=== PATIENT | male | born 1985 | race Caucasian/White ===

== ENCOUNTER 2021-08-20 09:21 | Observation (INO) ==
--- NOTE | 2021-08-20 09:26 | DR.ABDMALE ---
HPI Time seen Time Seen by Provider: 08/20/21 09:26 HPI comment HPI Comment: PATIENT IS 36YR OLD MALE IN ER WITH LLQ ABDOMINAL PAIN TIMES 6 DAYS, PAIN IS WORSE TODAY. PAIN IS SHARP, 10/10 AND RADIATES TO LEFT BACK. NO FEVER, DYSURIA, DIARRHEA OR VOMITING. NAUSEATED. HISTORY KIDNEY STONE AND WAS PLACE ON FLOMAX AND CIPRO WITHOUT IMPROVEMENT. Complaint Chief Complaint Doctors Comments: LLQ ABDOMINAL PAIN TIMES 6 DAYS. COVID-19 Coronavirus risk:travel/contact w/high risk person: No Has patient experienced Coronavirus symptoms: No Reviewed Nurses Notes Review: Yes Mode of arrival Mode of Arrival: Ambulatory Timing Came on: Suddenly Duration Duration: Constant Duration: Days Location Location: LLQ Severity Severity: Severe Quality Quality: Sharp Context Onset: Suddenly History of: Urolithiasis Modifying factors Worsening Factors: Movement Improving Factors: Lying Still Associated signs and symptoms Associated Signs and Symptoms: Nausea Other history Other History: HISTORY KIDNEY STONE. ROS Review of Systems Constitutional: No Symptoms Reported and See HPI; negative Fever, Weakness and Fatigue Eyes: No Symptoms Reported and See HPI ENTM: No Symptoms Reported and See HPI; negative Nose Discharge and Nose Congestion Respiratoy: No Symptoms Reported and See HPI; negative Moist Cough, Short of Breath and Wheezing Cardiovascular: No Symptoms Reported and See HPI; negative Chest Pain Gastrointestinal/Abdominal: No Symptoms Reported, See HPI, Abdominal Pain and Nausea; negative Constipation, Diarrhea and Vomiting Genitourinary: No Symptoms Reported and See HPI; negative Dysuria, Frequency and Hematuria Neurological: No Symptoms Reported and See HPI; negative Headache, Weakness and Dizziness Musculoskeletal: No Symptoms Reported and See HPI; negative Back Pain and Muscle Pain Integumentary: No Symptoms Reported and See HPI; negative Rash and Juandice Hematologic/Lymphatic: No Symptoms Reported and See HPI; negative Easy Bruising Endocrine: No Symptoms Reported and See HPI; negative Increased Thirst and Increased Urine Psychiatric: No Symptoms Reported and See HPI All Other Systems: Reviewed and Negative PE Vital Signs Vital Signs: Temp Pulse Resp BP Pulse Ox 08/20/21 10:08 18 08/20/21 09:23 98.6 F 97 H 18 174/111 97 General Limitations: No Limitations General Appearance: Alert and In No Apparent Distress Head Head Exam: Normal Inspection Eyes Eye exam: Normal Appearance; negative Scleral Icterus and Conjunctival Injection ENT ENT Exam: Normal Exam, Normal Oropharynx, Normal External Ear Exam and TM's Normal Bilaterally Neck Neck Exam: Normal Inspection and Trachea Midline; negative Tenderness Chest Chest Inspection: Normal Inspection and Symmetric Chest Wall Rise; negative Tenderness Respiratory Respiratory Exam: Normal Lung Sounds Bilat; negative Accessory Muscle Use, Chest Wall Tenderness and Respiratory Distress Respiratory Exam: Bilateral: Clear to Auscultation Cardiovascular Cardiovascular Exam: Regular Rate, Normal Rhythm and Normal Heart Sounds; negative Systolic Murmur and Diastolic Murmur Abdominal Exam Abdominal Exam: Normal Bowel Sounds, Soft, Distention and Tenderness Abdominal Tenderness: LLQ, Suprapubic and Moderate Rectal Rectal Exam: Deferred Back Back Exam: Normal Inspection; negative (R) CVA Tenderness and (L) CVA Tenderness Extremeties Extremities Exam: Normal Inspection and Normal Capillary Refill Exam: Male: Deferred Neurologic Neurological Exam: Alert and Oriented X3 Psychiatric Psychiatric Exam: Normal Affect and Normal Mood Skin Skin Exam: Warm, Dry, Intact and Normal Color MDM Differential Diagnosis Differential Diagnosis: Appendicitis, Bowel Obstruction, Cholcystitis, Cholelethiasis, Constipation, Diverticular disease, Gastritus/PUD, Inflammatory BD, Pancreatitis, Urinary tract infection and Urolithiasis COURSE Treatment Treatment: SEE ORDERS DONE WHILE PATIENT WAS IN ER. ADMITTED TO HOSPITAL FOR FURTHER MANAGEMENT FOR DIVERTIVULITIS WITH ABSCESS. Consultation Consultation Comments: DISCUSSED PATIENT WITH DR. COLLINS AND HE WILL ADMIT PATIENT. Education/Counseling Education/Counseling: Patient Educated On: Diagnosis ROR Labs Reviewed Laboratory Results Reviewed?: Yes Result Diagrams: 08/21/21 04:42 08/20/21 10:00 Laboratory: WBC 11.6 X10^3/uL (3.6-10.0) H 08/20/21 10:00 RBC 5.91 X10^6/uL (4.7-6.0) 08/20/21 10:00 Hgb 17.0 g/dL (13.5-18.0) 08/20/21 10:00 Hct 50.3 % (42.0-54.0) 08/20/21 10:00 MCV 85.1 fL (80.0-100.0) 08/20/21 10:00 MCH 28.8 pg (27.0-34.0) 08/20/21 10:00 MCHC 33.9 g/dL (33.0-35.0) 08/20/21 10:00 RDW 13.7 % (11.6-16.5) 08/20/21 10:00 Plt Count 275 X10^3/uL (150.0-450.0) 08/20/21 10:00 MPV 7.9 fL (7.4-11.0) 08/20/21 10:00 Neut % (Auto) 81.8 % (42.0-75.0) H 08/20/21 10:00 Lymph % (Auto) 10.9 % (21.0-51.0) L 08/20/21 10:00 [place] % (Auto) 6.3 % (0.0-13.0) 08/20/21 10:00 Eos % (Auto) 0.5 % (0.9-2.9) L 08/20/21 10:00 Baso % (Auto) 0.5 % (0.2-1.0) 08/20/21 10:00 Neut # (Auto) 9.5 x10^3/uL (2.2-4.8) H 08/20/21 10:00 Lymph # (Auto) 1.3 X10^3/uL (1.3-2.9) 08/20/21 10:00 [place] # (Auto) 0.7 x10^3/uL (0.3-0.8) 08/20/21 10:00 Eos # (Auto) 0.1 x10^3/uL (0.0-0.2) 08/20/21 10:00 Baso # (Auto) 0.1 X10^3/uL (0.0-0.1) 08/20/21 10:00 Absolute Nucleated RBC 0.0 /100WBC 08/20/21 10:00 Sodium 138 mmol/L (136-145) 08/20/21 10:00 Corrected Sodium TNP 08/20/21 10:00 Potassium 4.6 mmol/L (3.5-5.1) 08/20/21 10:00 Chloride 102 mmol/L (98-107) 08/20/21 10:00 Carbon Dioxide 26.6 mmol/L (21-32) 08/20/21 10:00 BUN 10 mg/dL (7-18) 08/20/21 10:00 Creatinine 1.25 mg/dL (0.70-1.30) 08/20/21 10:00 Est GFR (MDRD) Af Amer > 60 (>60) 08/20/21 10:00 Est GFR (MDRD) Non-Af > 60 (>60) 08/20/21 10:00 Glucose 91 mg/dL (65-99) 08/20/21 10:00 Calcium 9.3 mg/dL (8.5-10.1) 08/20/21 10:00 Corrected Calcium TNP 08/20/21 10:00 Total Bilirubin 0.60 mg/dL (0.2-1.0) 08/20/21 10:00 AST 44 Units/L (15-37) H 08/20/21 10:00 ALT 52 Units/L (12-78) 08/20/21 10:00 Alkaline Phosphatase 59 Units/L (46-116) 08/20/21 10:00 Total Protein 7.7 g/dL (6.4-8.2) 08/20/21 10:00 Albumin 3.8 g/dL (3.4-5.0) 08/20/21 10:00 Globulin 3.9 g/dL (2.5-4.5) 08/20/21 10:00 Albumin/Globulin Ratio 1.0 Ratio (1.1-2.1) L 08/20/21 10:00 Specimen Type Clean catch urine 08/20/21 10:26 Urine Color Yellow (YELLOW) 08/20/21 10:26 Urine Appearance Clear (CLEAR) 08/20/21 10:26 Urine pH 8.0 (5.0 - 8.0) 08/20/21 10:26 Ur Specific [place] 1.015 (1.000-1.030) 08/20/21 10:26 Urine Protein Negative (NEGATIVE) 08/20/21 10:26 Urine Glucose (UA) Negative (NEGATIVE) 08/20/21 10:26 Urine Ketones Negative (NEGATIVE) 08/20/21 10:26 Urine Blood Negative (NEGATIVE) 08/20/21 10:26 Urine Nitrite Negative (NEGATIVE) 08/20/21 10:26 Urine Bilirubin Negative (NEGATIVE) 08/20/21 10:26 Urine Urobilinogen Normal (NORMAL) 08/20/21 10:26 Ur Leukocyte Esterase Negative (NEGATIVE) 08/20/21 10:26 XRAY XRAY Interpreted by: Radiologist (REPORT NOTED.) Opioid Opioid Risk Tool Age (Faheem box if 16-45): Yes Total: 1 Total Score Risk Category: Low Risk Copyright: Aramis MEJIA predicting aberrant behaviors Diagnosis Discharge Problem: Diverticulitis Instructions Instructions: Soft-Food Eating Plan Diverticulitis, [id number] Antibiotic Medicine, Adult, [id number] Abdominal Pain, Adult, [id number] Clear Liquid Diet, Adult, [id number] You've Been Prescribed an Antibiotic in the Hospital for an Infection - CDC Forms: Excuse From Work or School Precautions for COVID19 [facility] Patient [facility] Social Distancing
[2021-08-20] MEDS ORDERED: TORADOL 30 MG VIAL IVP ONE (09:32)
[2021-08-20] MEDS ORDERED: ZOFRAN INJ 4 MG VIAL IVP ONE (09:32)
[2021-08-20] MEDS ORDERED: NS 1,000 ML IV 1,000 ML IV ONE (09:32)
[2021-08-20 09:38] VITALS: BMI 27.2
[2021-08-20] MEDS ORDERED: ZOFRAN INJ 4 MG VIAL ONE (09:42)
[2021-08-20] MEDS ORDERED: TORADOL 30 MG VIAL ONE (09:42)
[2021-08-20] MEDS ORDERED: NS 1,000 ML IV 1,000 ML ONE ×2 (09:42→14:24)
--- NOTE | 2021-08-20 10:19 | CT ---
HISTORYBilateral back painSTUDYCT abdomen pelvis without contrastTechnique: Axial noncontrast images with coronal and sagittal reformats. Dose reduction procedures were used with mA/kv adjusted for body size.COMPARISONNoneFINDINGSThe lung bases are clear. The liver, spleen, adrenal glands, and pancreas are within normal limits only to the limitations of an unenhanced examination. No opaque stones are present within the gallbladder. The kidneys are unobstructed. Bilateral tiny nonobstructing renal calculi are present. No ureteral calculi are identified. The appendix is not identified with absolute certainty. There are no secondary signs of appendicitis present. Abdominal aorta is normal in caliber. No intraperitoneal or retroperitoneal lymphadenopathy of significance is identified. There are no findings suggestive of enteritis or colitis. However there is diverticulosis of the sigmoid colon present. In the area of the mid sigmoid colon there is transmural thickening and pericolonic inflammation suggestive of acute mid sigmoid diverticulitis. Adjacent to the sigmoid colon there is what appears to be a 3.7 by 2.7 cm extraluminal air and fluid collection suspicious for pericolonic abscess. No pelvic fluid or pelvic lymphadenopathy is identified. No bladder abnormality is identified. Prostate gland is enlarged. No lytic or blastic skeletal lesion of significance is identified.IMPRESSIONFindings consistent with acute sigmoid diverticulitis with what appears to be a 3.7 x 2.7 cm extraluminal air in fluid collection suspicious for a pericolonic abscess.Bilateral tiny nonobstructing renal calculiElectronically signed by: MOR WESTFALL (August 20, 2021 10:17:36)
[2021-08-20 10:36] LABS: BASOPHILS # (AUTO) 0.1 X10^3/uL (0.0-0.1); BASOPHILS % (AUTO) 0.5 % (0.2-1.0); EOSINOPHILS # (AUTO) 0.1 x10^3/uL (0.0-0.2); EOSINOPHILS % (AUTO) 0.5 % (0.9-2.9); HEMATOCRIT 50.3 % (42.0-54.0); LYMPHOCYTES # (AUTO) 1.3 X10^3/uL (1.3-2.9); LYMPHOCYTES % (AUTO) 10.9 % (21.0-51.0); MEAN CORPUSCULAR HEMOGLOBIN 28.8 pg (27.0-34.0); MEAN CORPUSCULAR HGB CONC 33.9 g/dL (33.0-35.0); MEAN CORPUSCULAR VOLUME 85.1 fL (80.0-100.0); MEAN PLATELET VOLUME 7.9 fL (7.4-11.0); MONOCYTES # (AUTO) 0.7 x10^3/uL (0.3-0.8); MONOCYTES % (AUTO) 6.3 % (0.0-13.0); NEUTROPHILS # (AUTO) 9.5 x10^3/uL (2.2-4.8); NEUTROPHILS % (AUTO) 81.8 % (42.0-75.0); RED BLOOD COUNT 5.91 X10^6/uL (4.7-6.0); RED CELL DISTRIBUTION WIDTH 13.7 % (11.6-16.5); WHITE BLOOD COUNT 11.6 X10^3/uL (3.6-10.0)
[2021-08-20 10:43] LABS: BILIRUBIN,URINE NEGATIVE (NEGATIVE); BLOOD/HEMOGLOBIN,URINE NEGATIVE (NEGATIVE); GLUCOSE, URINE NEGATIVE (NEGATIVE); KETONES,URINE NEGATIVE (NEGATIVE); LEUKOCYTE ESTERASE ,URINE NEGATIVE (NEGATIVE); NITRITES,URINE NEGATIVE (NEGATIVE); PROTEIN,URINE NEGATIVE (NEGATIVE); UROBILINOGEN,URINE NORMAL (NORMAL)
[2021-08-20 10:56] LABS: BLOOD UREA NITROGEN 10 mg/dL (7-18); CALCIUM 9.3 mg/dL (8.5-10.1); CARBON DIOXIDE 26.6 mmol/L (21-32); CHLORIDE 102 mmol/L (98-107); CREATININE 1.25 mg/dL (0.70-1.30); SODIUM 138 mmol/L (136-145); eGFR NON BLACK RACES > 60 (>60)
[2021-08-20] MEDS ORDERED: FLAGYL IV PREMIX 500 MG BAG 500 MG/100 ML BAG IV ONE ×2 (11:01→11:16)
[2021-08-20 11:02] LABS: APPEARANCE,URINE CLEAR (CLEAR); COLOR,URINE YELLOW (YELLOW)
[2021-08-20] MEDS ORDERED: ZOFRAN INJ 4 MG VIAL IVP PRN (14:09)
[2021-08-20] MEDS: NS 1,000 ML IV 1,000 ML IV SCH (14:27)
[2021-08-20] MEDS: CIPRO IV 200 MG PREMIX* 200 MG/100 ML BAG IV SCH ×2 (14:27→20:27)
[2021-08-20] MEDS: FLAGYL IV PREMIX 500 MG BAG 500 MG/100 ML BAG IV SCH ×2 (15:55→21:33)
[2021-08-20] MEDS: OFIRMEV IV 1000 MG VIAL 1,000 MG/100 ML VIAL IV PRN (19:52)
[2021-08-20] MEDS: MORPHINE SULFATE INJ 2 MG INJ IVP PRN (21:42)
[2021-08-21] MEDS: FLAGYL IV PREMIX 500 MG BAG 500 MG/100 ML BAG IV SCH ×4 (03:27→20:31)
[2021-08-21] MEDS: NS 1,000 ML IV 1,000 ML IV SCH ×4 (03:27→20:31)
[2021-08-21 05:16] LABS: BASOPHILS # (AUTO) 0.1 X10^3/uL (0.0-0.1); BASOPHILS % (AUTO) 0.6 % (0.2-1.0); EOSINOPHILS # (AUTO) 0.1 x10^3/uL (0.0-0.2); HEMATOCRIT 45.3 % (42.0-54.0); HEMOGLOBIN 15.5 g/dL (13.5-18.0); LYMPHOCYTES # (AUTO) 1.5 X10^3/uL (1.3-2.9); LYMPHOCYTES % (AUTO) 15.4 % (21.0-51.0); MEAN CORPUSCULAR HGB CONC 34.2 g/dL (33.0-35.0); MEAN CORPUSCULAR VOLUME 84.8 fL (80.0-100.0); MEAN PLATELET VOLUME 7.6 fL (7.4-11.0); MONOCYTES # (AUTO) 0.7 x10^3/uL (0.3-0.8); MONOCYTES % (AUTO) 7.8 % (0.0-13.0); NEUTROPHILS # (AUTO) 7.2 x10^3/uL (2.2-4.8); NEUTROPHILS % (AUTO) 75.2 % (42.0-75.0); RED BLOOD COUNT 5.35 X10^6/uL (4.7-6.0); RED CELL DISTRIBUTION WIDTH 13.7 % (11.6-16.5); WHITE BLOOD COUNT 9.6 X10^3/uL (3.6-10.0)
[2021-08-21] MEDS: CIPRO IV 200 MG PREMIX* 200 MG/100 ML BAG IV SCH ×2 (09:31→20:31)
[2021-08-21] MEDS: LOVENOX INJ 40 MG SYR SC SCH (10:35)
--- NOTE | 2021-08-21 12:43 | DR.PROGNOT ---
Hospital Progress Notes - Progress Note for Day of: Progress Note Date: 08/21/21 - Chief Complaint Chief Complaint: feeling better today with less lower abdominal pain .. no nausea .. CBC ,Lytes normal . afebrile . - Past Medical Family Social History Past Med/Fam/Surg Hx: No changes since H&P Allergies: Allergies No Known Drug Allergies Allergy (Verified 08/20/21 09:22) - Review Of Systems ROS: No change since H&P - Vital Signs Vital Signs: Temperature 98.3 F Pulse Rate [Left Brachial] 83 Pulse Rate 73 Respiratory Rate 20 Blood Pressure [Left Arm] 128/80 Blood Pressure 128/75 O2 Sat by Pulse Oximetry 96 - Physical Exam Oriented: Normal Eyes: Normal Ear: Normal Nose: Normal Throat: Normal Respiratory: Normal Cardiovascular: Normal : Normal GI:Auscultation: Normal GI:Palpation: Normal GI: Tenderness: LLQ (soft abdomen with mild guarding .. moderate LLQ tenderness . BS+) Speech Pattern: Clear, Appropriate - Laboratory and Diagnostics Result Diagrams: 08/21/21 04:42 08/20/21 10:00 Labs: Laboratory WBC 9.6 X10^3/uL (3.6-10.0) 08/21/21 04:42 RBC 5.35 X10^6/uL (4.7-6.0) 08/21/21 04:42 Hgb 15.5 g/dL (13.5-18.0) 08/21/21 04:42 Hct 45.3 % (42.0-54.0) 08/21/21 04:42 MCV 84.8 fL (80.0-100.0) 08/21/21 04:42 MCH 29.0 pg (27.0-34.0) 08/21/21 04:42 MCHC 34.2 g/dL (33.0-35.0) 08/21/21 04:42 RDW 13.7 % (11.6-16.5) 08/21/21 04:42 Plt Count 244 X10^3/uL (150.0-450.0) 08/21/21 04:42 MPV 7.6 fL (7.4-11.0) 08/21/21 04:42 Neut % (Auto) 75.2 % (42.0-75.0) H 08/21/21 04:42 Lymph % (Auto) 15.4 % (21.0-51.0) L 08/21/21 04:42 [place] % (Auto) 7.8 % (0.0-13.0) 08/21/21 04:42 Eos % (Auto) 1.0 % (0.9-2.9) 08/21/21 04:42 Baso % (Auto) 0.6 % (0.2-1.0) 08/21/21 04:42 Neut # (Auto) 7.2 x10^3/uL (2.2-4.8) H 08/21/21 04:42 Lymph # (Auto) 1.5 X10^3/uL (1.3-2.9) 08/21/21 04:42 [place] # (Auto) 0.7 x10^3/uL (0.3-0.8) 08/21/21 04:42 Eos # (Auto) 0.1 x10^3/uL (0.0-0.2) 08/21/21 04:42 Baso # (Auto) 0.1 X10^3/uL (0.0-0.1) 08/21/21 04:42 Absolute Nucleated RBC 0.0 /100WBC 08/21/21 04:42 Sodium 138 mmol/L (136-145) 08/20/21 10:00 Corrected Sodium TNP 08/20/21 10:00 Potassium 4.6 mmol/L (3.5-5.1) 08/20/21 10:00 Chloride 102 mmol/L (98-107) 08/20/21 10:00 Carbon Dioxide 26.6 mmol/L (21-32) 08/20/21 10:00 BUN 10 mg/dL (7-18) 08/20/21 10:00 Creatinine 1.25 mg/dL (0.70-1.30) 08/20/21 10:00 Est GFR (MDRD) Af Amer > 60 (>60) 08/20/21 10:00 Est GFR (MDRD) Non-Af > 60 (>60) 08/20/21 10:00 Glucose 91 mg/dL (65-99) 08/20/21 10:00 Calcium 9.3 mg/dL (8.5-10.1) 08/20/21 10:00 Specimen Type Clean catch urine 08/20/21 10:26 Urine Color Yellow (YELLOW) 08/20/21 10:26 Urine Appearance Clear (CLEAR) 08/20/21 10:26 Urine pH 8.0 (5.0 - 8.0) 08/20/21 10:26 Ur Specific [place] 1.015 (1.000-1.030) 08/20/21 10:26 Urine Protein Negative (NEGATIVE) 08/20/21 10:26 Urine Glucose (UA) Negative (NEGATIVE) 08/20/21 10:26 Urine Ketones Negative (NEGATIVE) 08/20/21 10:26 Urine Blood Negative (NEGATIVE) 08/20/21 10:26 Urine Nitrite Negative (NEGATIVE) 08/20/21 10:26 Urine Bilirubin Negative (NEGATIVE) 08/20/21 10:26 Urine Urobilinogen Normal (NORMAL) 08/20/21 10:26 Ur Leukocyte Esterase Negative (NEGATIVE) 08/20/21 10:26 SARS-CoV-2 (PCR) Negative (NEGATIVE) 08/20/21 13:24 - Assessment and Plan 1: acute sigmoid diverticulitis with possible abscess formation .. on IVF and ABT .. may have water only .. - Problem Patient Problems: Patient Problems Diverticulitis (Acute) K57.92
[2021-08-21] MEDS: MORPHINE SULFATE INJ 2 MG INJ IVP PRN (14:27)
[2021-08-21] MEDS: OFIRMEV IV 1000 MG VIAL 1,000 MG/100 ML VIAL IV PRN (18:01)
[2021-08-21 22:15] LABS: ALANINE AMINOTRANSFERASE 52 Units/L (12-78); ALBUMIN 3.8 g/dL (3.4-5.0); ALKALINE PHOSPHATASE 59 Units/L (46-116); ASPARTATE AMINO TRANSFERASE 44 Units/L (15-37); TOTAL PROTEIN 7.7 g/dL (6.4-8.2)
[2021-08-22] MEDS: FLAGYL IV PREMIX 500 MG BAG 500 MG/100 ML BAG IV SCH ×2 (02:47→08:00)
[2021-08-22] MEDS: NS 1,000 ML IV 1,000 ML IV SCH ×2 (05:40→05:48)
[2021-08-22] MEDS: CIPRO IV 200 MG PREMIX* 200 MG/100 ML BAG IV SCH (08:00)
[2021-08-22] MEDS: LOVENOX INJ 40 MG SYR SC SCH (08:01)
[2021-08-22 11:51] VITALS: BP 131/75
== END 2021-08-22 14:05 | disposition home or self-care (01) ==
LOC: ER 09:21 → MED/SURG 09:21
PROVIDERS: ADMIT Surgery; ATTEND Surgery
DX: R10.84 Generalized abdominal pain; K57.20 Diverticulitis of large intestine with perforation and abscess without bleeding; R74.8 Abnormal levels of other serum enzymes; Z20.822 Contact with and (suspected) exposure to COVID-19